=== PATIENT | male | born 1945 | race Two or more races ===

== ENCOUNTER 2017-06-19 00:58 | Inpatient (IN) | payer MEDICARE, OTHER, BC ==
[2017-06-19 01:48] LABS: ADD MAN DIFF? NO
[2017-06-19] MEDS: DIPHTH/TET/ACEL PERTUSS (ADULT) 0.5 ML VIAL IM* (02:05)
[2017-06-19] MEDS: ONDANSETRON 4 MG INJ IV (02:05)
[2017-06-19] MEDS: SOD CHLORIDE 0.9% 1,000 ML IV (02:05)
[2017-06-19 02:11] LABS: BASOPHIL # 0.1 10^3/ul (0.0-0.1); BASOPHILS % 0.9 % (0.0-2.0); EOSINOPHILS # 0.4 10^3/ul (0.0-0.5); EOSINOPHILS % 7.1 % (0.0-7.0); HEMATOCRIT 37.7 % (42.0-52.0); LYMPHOCYTES # 1.8 10^3/ul (0.8-2.9); LYMPHOCYTES % 32.4 % (15.0-51.0); MEAN CORPUSCULAR HEMOGLOBIN 33.3 pg (29.0-33.0); MEAN CORPUSCULAR HGB CONC 34.5 g/dl (32.0-37.0); MEAN CORPUSCULAR VOLUME 96.7 fl (82.0-101.0); MEAN PLATELET VOLUME 11.5 fl (7.4-10.4); MONOCYTE # 0.6 10^3/ul (0.3-0.9); MONOCYTES % 10.5 % (0.0-11.0); NEUTROPHIL # 2.7 10^3/ul (1.6-7.5); NEUTROPHILS % 49.1 % (39.0-77.0); PLATELET COUNT 179 10^3/UL (140-415); RED CELL DISTRIBUTION WIDTH 12.6 % (11.5-14.5)
[2017-06-19 02:11] LABS: WHITE BLOOD COUNT 5.5 10^3/ul (4.8-10.8)
[2017-06-19 02:13] LABS: ALANINE AMINOTRANSFERASE 28 IU/L (13-69); ALBUMIN 3.1 g/dl (3.3-4.9); ALKALINE PHOSPHATASE 61 IU/L (42-121); ANION GAP 14 (8-16); ASPARTATE AMINO TRANSFERASE 18 IU/L (15-46); BILIRUBIN,INDIRECT 0.1 mg/dl (0-1.1); BILIRUBIN,TOTAL 0.1 mg/dl (0.2-1.3); BLOOD UREA NITROGEN 18 mg/dl (7-20); CALCIUM 7.1 mg/dl (8.4-10.2); CARBON DIOXIDE 24 mmol/L (21-31); CHLORIDE 108 mmol/L (97-110); CREATININE 0.72 mg/dl (0.61-1.24); GLUCOSE 95 mg/dl (70-220); LIPASE 90 U/L (23-300); POTASSIUM 3.2 mmol/L (3.5-5.1); SODIUM 143 mmol/L (135-144); TOTAL PROTEIN 5.3 g/dl (6.1-8.1)
[2017-06-19 02:53] LABS: TROPONIN-I < 0.012 ng/ml (0.00-0.12)
[2017-06-19] MEDS ORDERED: morphine 2 MG INJ IV (04:30)
[2017-06-19] MEDS ORDERED: NACL 0.9% 3 ML SYG IV (04:30)
[2017-06-19] MEDS ORDERED: ACETAMINOPHEN 325 MG TAB PO (04:30)
[2017-06-19] MEDS: HEPARIN 5,000 UNIT/0.5 ML VIAL SC ×2 (09:00→21:00)
[2017-06-19] MEDS: POTASSIUM CHLORIDE (SR) 20 MEQ TAB PO (14:47)
[2017-06-19] MEDS: ASPIRIN 81 MG TAB PO (14:47)
[2017-06-19 15:35] LABS: ADD MAN DIFF? NO
[2017-06-19 15:37] LABS: BASOPHILS % 0.3 % (0.0-2.0); EOSINOPHILS # 0.1 10^3/ul (0.0-0.5); EOSINOPHILS % 1.8 % (0.0-7.0); HEMOGLOBIN 13.4 g/dl (14.0-18.0); LYMPHOCYTES # 0.9 10^3/ul (0.8-2.9); LYMPHOCYTES % 15.5 % (15.0-51.0); MEAN CORPUSCULAR HEMOGLOBIN 33.4 pg (29.0-33.0); MEAN CORPUSCULAR HGB CONC 34.4 g/dl (32.0-37.0); MEAN CORPUSCULAR VOLUME 97.3 fl (82.0-101.0); MEAN PLATELET VOLUME 11.4 fl (7.4-10.4); MONOCYTE # 0.4 10^3/ul (0.3-0.9); MONOCYTES % 6.9 % (0.0-11.0); NEUTROPHIL # 4.5 10^3/ul (1.6-7.5); NEUTROPHILS % 75.3 % (39.0-77.0); PLATELET COUNT 198 10^3/UL (140-415); RED BLOOD COUNT 4.01 10^6/ul (4.70-6.10); RED CELL DISTRIBUTION WIDTH 12.7 % (11.5-14.5)
[2017-06-19 15:57] LABS: HEMOGLOBIN A1C 5.8 % (0-5.9)
[2017-06-19 15:58] LABS: ALANINE AMINOTRANSFERASE 29 IU/L (13-69); ALBUMIN 4.4 g/dl (3.3-4.9); ALBUMIN/GLOBULIN RATIO 1.51; ALKALINE PHOSPHATASE 84 IU/L (42-121); ANION GAP 18 (8-16); ASPARTATE AMINO TRANSFERASE 21 IU/L (15-46); BILIRUBIN,INDIRECT 0.5 mg/dl (0-1.1); BILIRUBIN,TOTAL 0.5 mg/dl (0.2-1.3); BLOOD UREA NITROGEN 16 mg/dl (7-20); CALCIUM 9.3 mg/dl (8.4-10.2); CARBON DIOXIDE 27 mmol/L (21-31); CHLORIDE 105 mmol/L (97-110); CHOL/HDL RATIO 1.8 RATIO; CHOLESTEROL 138 mg/dl (100-200); GLUCOSE 124 mg/dl (70-220); HDL CHOLESTEROL 73 mg/dl (31-75); LDL CHOLESTEROL,CALCULATED 53 mg/dl; POTASSIUM 4.2 mmol/L (3.5-5.1); SODIUM 146 mmol/L (135-144); TOTAL PROTEIN 7.3 g/dl (6.1-8.1)
[2017-06-19 16:02] LABS: TRIGLYCERIDES 60 mg/dl (0-149)
[2017-06-19 16:11] LABS: TROPONIN-I < 0.012 ng/ml (0.00-0.12)
[2017-06-19 16:29] LABS: THYROID STIMULATING HORMONE 0.654 MIU/L (0.465-4.680)
[2017-06-19 23:00] LABS: TROPONIN-I < 0.012 ng/ml (0.00-0.12)
[2017-06-20 07:18] LABS: ADD MAN DIFF? NO; BASOPHILS % 0.6 % (0.0-2.0); EOSINOPHILS # 0.3 10^3/ul (0.0-0.5); EOSINOPHILS % 5.9 % (0.0-7.0); HEMATOCRIT 37.9 % (42.0-52.0); HEMOGLOBIN 13.2 g/dl (14.0-18.0); LYMPHOCYTES # 1.1 10^3/ul (0.8-2.9); LYMPHOCYTES % 21.4 % (15.0-51.0); MEAN CORPUSCULAR HEMOGLOBIN 33.8 pg (29.0-33.0); MEAN CORPUSCULAR HGB CONC 34.8 g/dl (32.0-37.0); MEAN CORPUSCULAR VOLUME 97.2 fl (82.0-101.0); MEAN PLATELET VOLUME 11.1 fl (7.4-10.4); MONOCYTE # 0.4 10^3/ul (0.3-0.9); NEUTROPHIL # 3.1 10^3/ul (1.6-7.5); NEUTROPHILS % 63.1 % (39.0-77.0); PLATELET COUNT 185 10^3/UL (140-415); RED CELL DISTRIBUTION WIDTH 12.8 % (11.5-14.5)
[2017-06-20 07:18] LABS: WHITE BLOOD COUNT 4.9 10^3/ul (4.8-10.8)
[2017-06-20 07:34] LABS: ANION GAP 16 (8-16); BLOOD UREA NITROGEN 16 mg/dl (7-20); CALCIUM 9.3 mg/dl (8.4-10.2); CARBON DIOXIDE 26 mmol/L (21-31); CHLORIDE 106 mmol/L (97-110); GLUCOSE 93 mg/dl (70-220); PHOSPHORUS 3.6 mg/dl (2.5-4.9); POTASSIUM 4.2 mmol/L (3.5-5.1); SODIUM 144 mmol/L (135-144)
[2017-06-20] MEDS: HEPARIN 5,000 UNIT/0.5 ML VIAL SC ×2 (08:53→21:00)
[2017-06-20] MEDS: ASPIRIN 81 MG TAB PO (08:53)
[2017-06-21] MEDS: ASPIRIN 81 MG TAB PO (08:16)
[2017-06-21] MEDS: HEPARIN 5,000 UNIT/0.5 ML VIAL SC ×2 (08:20→20:39)
[2017-06-22] MEDS: ASPIRIN 81 MG TAB PO (08:35)
[2017-06-22] MEDS: HEPARIN 5,000 UNIT/0.5 ML VIAL SC (08:36)
== END 2017-06-22 17:47 | disposition home or self-care (01) | DRG 312 ==
LOC: E/R 00:58 → MS4 03:10
DX: I95.1 Orthostatic hypotension (principal); E86.0 Dehydration; S01.112A Laceration without foreign body of left eyelid and periocular area, initial encounter; E78.5 Hyperlipidemia, unspecified; W22.8XXA Striking against or struck by other objects, initial encounter; Y93.89 Activity, other specified; Y92.019 Unspecified place in single-family (private) house as the place of occurrence of the external cause; Y99.8 Other external cause status; Z79.82 Long term (current) use of aspirin; Z87.891 Personal history of nicotine dependence; Z86.73 Personal history of transient ischemic attack (TIA), and cerebral infarction without residual deficits
CPT/HCPCS: 36415; 70450; 71045; 80048; 80053; 80061; 83036; 83690; 83735; 84100; 84443; 84484; 85025; 90471; 90715; 93005; 93306; 93880; 96374; 97161; 99285-25; G0378